=== PATIENT | male | born 1975 | race Caucasian/White ===

== ENCOUNTER 2020-11-03 18:27 | Emergency (ER) | payer OTHER, BC | END 2020-11-03 19:25 | disposition home or self-care (01) | LOC: CSHERS 18:27 | DX: M54.2 Cervicalgia (principal); E11.9 Type 2 diabetes mellitus without complications; V49.40XA Driver injured in collision with unspecified motor vehicles in traffic accident, initial encounter | CPT/HCPCS: 71045; G0390 ==

== ENCOUNTER 2020-11-07 13:06 | Emergency (ER) | payer OTHER, BC | END 2020-11-07 15:21 | disposition home or self-care (01) | LOC: CSHERS 13:06 | DX: S29.012A Strain of muscle and tendon of back wall of thorax, initial encounter (principal); V89.2XXA Person injured in unspecified motor-vehicle accident, traffic, initial encounter | CPT/HCPCS: 99283 ==

== ENCOUNTER 2021-05-31 06:19 | Inpatient (IN) | payer BC ==
[2021-05-31] MEDS ORDERED: Ondansetron PF 4 MG/2 ML Vial ONE (06:42)
[2021-05-31] MEDS ORDERED: Morphine 4 MG/ML VIAL ONE ×2 (06:42→09:12)
[2021-05-31 07:09] LABS: #Basophils 0.1 10x3/uL (0.0-0.2); #Eosinphils 0.1 10x3/uL (0.0-0.5); #Monocytes 1.2 10x3/uL (0.0-1.1); #Neutrophils 14.4 10x3/uL (1.5-8.4); %Basophils 0.4 % (0.0-2.0); %Eosinophils 0.4 % (0.0-6.0); %Lymphocytes 12.4 % (18.0-47.0); %Monocytes 6.8 % (0.0-10.0); %Neutrophils 79.4 % (40.0-75.0); Hemoglobin 16.4 g/dL (13.5-17.5); Mean Corpuscular HGB CONC 33.2 g/dL (32.0-36.0); Mean Corpuscular Hemoglobin 30.5 pg (27.0-33.0); Mean Corpuscular Volume 91.8 fl (81.2-95.1); Mean Platelet Volume 9.5 fl (7.4-10.4); Platelet Count 446 10x3/uL (150-450); RBC Distribution Width 13.2 % (11.5-14.5); Red Blood Cell (RBC) Count 5.38 10x6/uL (4.32-5.72); White Blood Cell (WBC) Count 18.2 10x3/uL (3.5-10.5)
[2021-05-31 07:23] LABS: ALT (SGPT) 34 U/L (8-55); AST (SGOT) 24 U/L (5-34); Albumin 4.6 g/dL (3.5-5.0); Alkaline Phosphatase 85 U/L (40-110); Anion Gap 17 mmol/L (10-20); BUN (Urea Nitrogen) 17 mg/dL (8.9-20.6); Calc. Creatinine Clearance 0 mL/min (70-130); Calcium 9.9 mg/dL (7.8-10.44); Carbon Dioxide 28 mmol/L (22-29); Chloride 97 mmol/L (98-107); Globulin 3.3 g/dL (2.4-3.5); Glucose 137 mg/dL (70-105); Lipase 25 U/L (8-78); Potassium 4.7 mmol/L (3.5-5.1); Protein, Total 7.9 g/dL (6.0-8.3); Sodium 137 mmol/L (136-145)
[2021-05-31] MEDS ORDERED: Piperacillin/Tazobactam 3.375 GM VIAL ONE (09:13)
[2021-05-31 09:29] LABS: Actual Bicarbonate (HCO3v) 28 mEq/L (22-28); Base Excess 2.1 mEq/L (-2.0 to +3.0); Calcium, Ionized (venous) 1.09 mmol/L (1.16-1.32); Chloride (VBG) 96 mmol/L (98-106); Critical Notified Whom: ERMD; Hemoglobin (Hb) 17.3 g/dL (13.2-17.3); Potassium (VBG) 4.71 mmol/L (3.70-5.30); Puncture Site Other Site; RapidComm Collect By CBN; Sodium 135.9 mmol/L (133-146); pH (venous) 7.39 (7.32-7.43)
[2021-05-31] MEDS ORDERED: Lidocaine Viscous Sol 2% 15 ml UD Cup FS SCH (09:30)
[2021-05-31 09:56] LABS: Lactic Acid 1.9 mmol/L (0.5-2.2)
[2021-05-31 10:26] LABS: Bilirubin Neg (Negative); Blood, Urine Negative (Negative); Clarity Clear (Clear); Glucose, Urine (Dipstick) Normal (Negative); Ketone, Urine 50 mg/dL (Negative); Leukocyte Negative (Negative); Nitrite Negative (Negative); Protein, Urine (Dipstick) 15 mg/dl (Neg-Trace); Urobilinogen Normal mg/dL (Less than 2)
[2021-05-31 10:59] LABS: SARS-CoV-2 NAA Rapid Test Not Detected (NotDetected)
[2021-05-31 11:46] VITALS: BMI 20.1
[2021-05-31] MEDS ORDERED: Dextrose 50% Abboject 50 ML SYRINGE SLOW IVP PRN (12:03)
[2021-05-31] MEDS ORDERED: HumaLOG 300 UNITS/3 ML VIAL SC PRN (12:03)
[2021-05-31] MEDS ORDERED: Morphine 4 MG/ML VIAL SLOW IVP PRN (12:03)
[2021-05-31] MEDS ORDERED: Morphine 2 MG/ML VIAL SLOW IVP PRN (12:03)
[2021-05-31] MEDS ORDERED: hydrALAZINE 20 MG/ML VIAL SLOW IVP PRN (12:03)
[2021-05-31] MEDS ORDERED: Ondansetron PF 4 MG/2 ML Vial IVP PRN (12:03)
[2021-05-31] MEDS ORDERED: Dextrose 5% in Water 1,000 ML IV PRN (12:03)
[2021-05-31] MEDS ORDERED: Ketorolac Tromethamine 30 MG/ML VIAL IVP PRN (12:07)
[2021-05-31] MEDS ORDERED: Sodium Chloride 0.9% 1,000 ML IV SCH (12:15)
[2021-05-31] MEDS: Sodium Chloride 0.45% 1,000 ML IV SCH ×2 (12:51→21:12)
[2021-05-31] MEDS ORDERED: Ketorolac Tromethamine 30 MG/ML VIAL IVP SCH (13:00)
[2021-05-31] MEDS: Gentamicin Ophth Soln 0.3% 5 ml Bottle R EYE SCH ×3 (13:44→21:16)
[2021-05-31] MEDS: Ipratropium Bromide 0.06% Nasal Inhaler 15ml EA NARE SCH ×2 (17:23→21:13)
[2021-05-31] MEDS: Enoxaparin Sodium 40 MG/0.4 ML SYRINGE SC SCH (21:13)
[2021-06-01] MEDS: Gentamicin Ophth Soln 0.3% 5 ml Bottle R EYE SCH ×6 (01:24→21:19)
[2021-06-01] MEDS ORDERED: Piperacillin/Tazobactam 3.375 GM in Sodium Chloride 0.9% 100 ML IVPB SCH (03:15)
[2021-06-01 04:22] LABS: Mean Corpuscular HGB CONC 32.6 g/dL (32.0-36.0); Mean Corpuscular Hemoglobin 30.2 pg (27.0-33.0); Mean Corpuscular Volume 92.7 fl (81.2-95.1); Mean Platelet Volume 10.1 fl (7.4-10.4); Platelet Count 368 10x3/uL (150-450); RBC Distribution Width 13.2 % (11.5-14.5); Red Blood Cell (RBC) Count 4.63 10x6/uL (4.32-5.72); White Blood Cell (WBC) Count 21.5 10x3/uL (3.5-10.5)
[2021-06-01 04:40] LABS: Anion Gap 13 mmol/L (10-20); BUN (Urea Nitrogen) 12 mg/dL (8.9-20.6); Calc. Creatinine Clearance 79 mL/min (70-130); Calcium 8.1 mg/dL (7.8-10.44); Carbon Dioxide 21 mmol/L (22-29); Chloride 103 mmol/L (98-107); Glucose 143 mg/dL (70-105); Potassium 4.2 mmol/L (3.5-5.1); Sodium 133 mmol/L (136-145)
[2021-06-01] MEDS: Sodium Chloride 0.45% 1,000 ML IV SCH ×2 (05:30→12:31)
[2021-06-01 05:33] LABS: Band 16 % (5-11); Lymphocytes 10 % (21-51); Monocytes 6 % (0-10); Nucleated RBC 1 % (0)
[2021-06-01 05:34] LABS: Neutrophil 68 % (42-75)
[2021-06-01 05:35] LABS: Platelet Morphology Comment Appears Adequate
[2021-06-01 05:37] LABS: Large Platelets SLIGHT; MDiff Complete? YES; Platelet Clumps SLIGHT
[2021-06-01] MEDS ORDERED: Pantoprazole 40 MG VIAL IVP SCH (09:00)
[2021-06-01] MEDS: Piperacillin/Tazobactam 3.375 GM in Sodium Chloride 0.9% 100 ML IVPB SCH ×2 (10:18→15:09)
[2021-06-01] MEDS ORDERED: HumaLOG 300 UNITS/3 ML VIAL SC PRN (14:17)
[2021-06-01] MEDS: Ipratropium Bromide 0.06% Nasal Inhaler 15ml EA NARE SCH ×2 (15:09→21:19)
[2021-06-01 21:16] LABS: SARS-CoV-2 PCR by NAA Not Detected (NotDetected)
[2021-06-01] MEDS: Enoxaparin Sodium 40 MG/0.4 ML SYRINGE SC SCH (21:18)
[2021-06-01] MEDS ORDERED: Metoprolol Tartrate 25 MG TAB PO SCH (21:45)
[2021-06-01] MEDS ORDERED: Nitroglycerin 0.4 MG TAB (25 Tab Bottle) SL PRN (21:45)
[2021-06-01] MEDS ORDERED: Famotidine/PF 20 mg/2ml Vial SLOW IVP SCH (21:45)
[2021-06-01] MEDS ORDERED: Morphine 4 MG/ML VIAL SLOW IVP PRN (21:49)
[2021-06-01] MEDS ORDERED: Dextrose 5% in Water 1,000 ML IV PRN (21:59)
[2021-06-01] MEDS ORDERED: Insulin Regular 300 UNITS/3 ML VIAL SC PRN (21:59)
[2021-06-01] MEDS ORDERED: Dextrose 50% Abboject 50 ML SYRINGE SLOW IVP PRN (21:59)
[2021-06-02] MEDS: Gentamicin Ophth Soln 0.3% 5 ml Bottle R EYE SCH ×4 (02:19→13:47)
[2021-06-02 04:17] LABS: #Basophils 0.1 10x3/uL (0.0-0.2); #Eosinphils 0.2 10x3/uL (0.0-0.5); #Monocytes 1.6 10x3/uL (0.0-1.1); #Neutrophils 10.9 10x3/uL (1.5-8.4); %Basophils 0.5 % (0.0-2.0); %Lymphocytes 23.6 % (18.0-47.0); %Monocytes 9.7 % (0.0-10.0); %Neutrophils 64.8 % (40.0-75.0); Hemoglobin 14.4 g/dL (13.5-17.5); Mean Corpuscular HGB CONC 32.5 g/dL (32.0-36.0); Mean Corpuscular Hemoglobin 30.1 pg (27.0-33.0); Mean Corpuscular Volume 92.5 fl (81.2-95.1); Mean Platelet Volume 10.2 fl (7.4-10.4); Platelet Count 352 10x3/uL (150-450); RBC Distribution Width 13.2 % (11.5-14.5); Red Blood Cell (RBC) Count 4.79 10x6/uL (4.32-5.72); White Blood Cell (WBC) Count 16.8 10x3/uL (3.5-10.5)
[2021-06-02 04:41] LABS: Anion Gap 15 mmol/L (10-20); BUN (Urea Nitrogen) 14 mg/dL (8.9-20.6); Calc. Creatinine Clearance 83 mL/min (70-130); Calcium 8.8 mg/dL (7.8-10.44); Carbon Dioxide 21 mmol/L (22-29); Chloride 106 mmol/L (98-107); Glucose 125 mg/dL (70-105); Magnesium 2.2 mg/dL (1.6-2.6); Potassium 3.8 mmol/L (3.5-5.1); Sodium 138 mmol/L (136-145)
[2021-06-02 05:28] LABS: CKMB 6.7 ng/mL (0-6.6)
[2021-06-02] MEDS ORDERED: Metoprolol Tartrate 25 MG TAB PO SCH (09:00)
[2021-06-02 09:18] LABS: CKMB 6.4 ng/mL (0-6.6)
[2021-06-02] MEDS: Piperacillin/Tazobactam 3.375 GM in Sodium Chloride 0.9% 100 ML IVPB SCH ×2 (09:40)
[2021-06-02] MEDS: Ipratropium Bromide 0.06% Nasal Inhaler 15ml EA NARE SCH ×2 (09:41→13:47)
[2021-06-02 11:14] LABS: Hemoglobin A1c 5.9 % (4.0-6.0)
[2021-06-02 13:30] VITALS: BP 115/65; TEMP 98.8
== END 2021-06-02 14:57 | disposition home or self-care (01) | DRG 390 ==
LOC: CSHERS 06:19 → CSHTELE 09:43
PROVIDERS: ADMIT Specialist; ATTEND Internal Medicine
DX: K56.609 Unspecified intestinal obstruction, unspecified as to partial versus complete obstruction (principal); Z20.822 Contact with and (suspected) exposure to COVID-19; E10.9 Type 1 diabetes mellitus without complications; R07.9 Chest pain, unspecified; R94.31 Abnormal electrocardiogram [ECG] [EKG]; E86.1 Hypovolemia; Z90.81 Acquired absence of spleen
CPT/HCPCS: 36415; 36416; 71046; 74018; 74019; 74022; 74177; 74250; 80048; 80053; 81003; 82010; 82553; 82805; 83036; 83605; 83690; 83735; 83880; 84443; 84484; 85025; 87040; 87086; 93005; 93010; 93306; 94760; 96365; 96375; 96376; C9113; J1650; J1885; J2270; J2405; J2543; J3490; J7050; S0028; U0002; U0003; U0005